=== PATIENT | male | born 1925 | race Caucasian/White ===

== ENCOUNTER 2016-12-05 15:07 | Inpatient (IN) | payer MEDICARE ==
--- OUTSIDE RECORDS SUMMARY | 2016-12-05 15:10 | XMS | Clinical Summary ---
:1925 Author Organization [facility] Address [address] [place] [address] Phone Care Team Providers Name Role Phone , Primary Care Provider Unavailable Allergies Not on File Current Medications Not on file Active Problems Not on file Social History Tobacco Use Types Packs/Day Years Used Date Never Assessed Sex Assigned at Date Recorded Not on file Last Filed Vital Signs Not on file Plan of Treatment Not on file Results Not on filefrom Last 3 Months
[2016-12-05 15:50] LABS: #Eosinphils 0.1 thou/uL (0.0-0.7); #Lymphocytes 0.8 thou/uL (1.20-3.40); #Monocytes 0.7 thou/uL (0.11-0.59); #Neutrophils 3.9 thou/uL (1.40-6.50); %Basophils 0.4 % (0.0-1.0); %Eosinophils 1.9 % (0.0-10.0); %Lymphocytes 14.9 % (21.0-51.0); %Monocytes 13.3 % (0.0-10.0); Hematocrit 34.8 % (42.0-52.0); Mean Platelet Volume 6.5 fL (7.4-10.4); Red Blood Cell (RBC) Count 3.57 mill/uL (4.70-6.10); White Blood Cell (WBC) Count 5.5 thou/uL (4.8-10.8)
[2016-12-05 16:07] LABS: Lactic Acid - Sepsis 1.8 mmol/L (0.5-2.2)
[2016-12-05 16:09] LABS: ALT (SGPT) 7 U/L (8-55); AST (SGOT) 14 U/L (5-34); Alkaline Phosphatase 60 U/L (40-150); Anion Gap 12 mmol/L (10-20); BUN (Urea Nitrogen) 11 mg/dL (8.4-25.7); Bilirubin, Total 0.5 mg/dL (0.2-1.2); CK (CPK) 23 U/L (30-200); Calc. Creatinine Clearance 0 mL/min (70-130); Carbon Dioxide 28 mmol/L (23-31); Chloride 95 mmol/L (98-107); Estimated GFR-MDRD Greater than 90; Globulin 3.8 g/dL (2.4-3.5)
[2016-12-05 16:13] LABS: Troponin I 0.042 ng/mL (< 0.028)
[2016-12-05 16:35] LABS: Bilirubin Negative (Negative); Blood, Urine Moderate (Negative); Glucose, Urine (Dipstick) Negative (Negative); Ketone, Urine Negative (Negative); Nitrite Negative (Negative); Protein, Urine (Dipstick) 100 mg/dL (Neg-Trace)
[2016-12-05 16:37] LABS: Bacteria/HPF Rare-Few HPF (None Seen); RBC/HPF 21-50 HPF (0-3); Squamous Epithelial 0-3 HPF (0-3)
[2016-12-05] MEDS ORDERED: traMADol HCl 50 MG TAB ONE (16:40)
[2016-12-05 16:48] LABS: Hyaline Casts/LPF 0-3 HYALINE CAST LPF (0-3 Hyaline); Yeast-All Forms None Seen HPF (None Seen)
[2016-12-05] MEDS ORDERED: ISOVUE-370 76%-LOCM 1 ML ONE (16:52)
[2016-12-05] MEDS ORDERED: Piperacillin/Tazobactam 3.375 GM in Sodium Chloride 0.9% 100 ML IVPB SCH (18:45)
--- NOTE | 2016-12-05 19:03 | CT ---
EXAM: ABDOMEN CT WITH CONTRAST PELVIC CT WITH CONTRAST 12/05/16 HISTORY: Stage IV sacral decubitus right buttock ulcer. COMPARISON: None. TECHNIQUE: An abdomen and pelvic CT are performed with IV contrast. Coronal reformatted images are submitted ar e submitted for interpretation. FINDINGS: ABDOMEN CT: The heart is enlarged. There is no significant pericardial fluid. Small bilateral pleural effusions. Adjacent consolidation likely due to atelectasis or pneumonia is noted. Descending thoracic aorta a nd abdominal aorta have an overall normal caliber. There is atherosclerosis. No periaortic fat stran ding. Note is made of an IVC filter. Intra and extrahepatic portal vein is patent. Limited evaluation of the solid organs due to inadequate contrast enhancement and motion degradation . No obvious masses in the liver, spleen, or either adrenal gland. There is mild pancreatic atrophy. There are hypodensities in the right kidney compatible with complex right renal cysts. Largest hypod ensity measures 4.6 x 3.8 cm and has an attenuation coefficient of 24 Hounsfield units. This lesion can be better characterized with nonemergent renal ultrasound. Bilaterally, no obstructive uropathy. Ventral abdominal hernia containing mesenteric fat is noted. No bowel herniation. No mesenteric mass, lymphadenopathy, free air or free fluid. Limited evaluation of the alimentary canal due to motion and lack of oral contrast. No bowel obstruc tion. Ileocecal junction is normal. Normal caliber appendix. Scattered fecal material in a nondisten ded, nondilated colon. Diverticulosis of the sigmoid colon. No evidence of diverticulitis. Note: Evaluation of the sigmoid colon is limited by beam attenuation artifact due to bilateral hip p rostheses. PELVIC CT: There is some nonspecific fluid in the distal sigmoid colon and rectum, incompletely evaluated. No o bvious pelvic mass, lymphadenopathy, free air or free fluid. The urinary bladder is not appreciated. Evaluation of the pelvis is limited due to extensive beam attenuation artifact secondary to bilater al hip arthroplasties as well as internal fixation hardware involving the left acetabulum. Chronic c hanges to the left bony pelvis and left hip are noted. There appears to be induration of the fat wit h stranding involving the medial right gluteal subcutaneous fat and soft tissues. A drainable fluid collection is not appreciated. The hypodensity does expand into the deep subcutaneous fat. This hypo density is somewhat ill-defined, measuring 3.8 x 3.0 cm. Questionable induration of the left gluteal subcutaneous fat is also noted. There are no osteoblastic or osteolytic lesions. IMPRESSION: 1. Bilateral pleural effusion with adjacent lung consolidation due to atelectasis or pneumonia. 2. Limited evaluation of the solid organs. Grossly, no solid organ abnormality. 3. Hypodensities in the right kidney. Nonemergent right kidney ultrasound. 4. Right gluteal subcutaneous erosion and stranding of the deep and subcutaneous fat. A well de fined drainable abscess is not appreciated. 5. Diverticulosis of the sigmoid colon, without evidence of diverticulitis. Nonspecific fluid i n the distal sigmoid colon and rectum. POS: [facility]
[2016-12-05] MEDS ORDERED: Ondansetron ODT 4 MG TAB SL PRN (20:00)
[2016-12-05] MEDS ORDERED: Acetaminophen 325 MG TAB PO PRN (20:00)
[2016-12-05] MEDS ORDERED: Ondansetron HCl/PF 4 MG/2 ML Vial IVP PRN ×2 (20:00→21:24)
--- NOTE | 2016-12-05 21:24 | PDOC.EVN ---
Event Note - Event Note Event Note: [id number] h&p dICTATED 1. Stage4 decubitus ulcer 2. H/O CHF + Abnormal cardiac enzymes 3. dm TYPE 2 4. HPL plan: see orders
[2016-12-05] MEDS ORDERED: HumaLOG 300 UNITS/3 ML VIAL SC PRN ×2 (21:26)
[2016-12-05] MEDS ORDERED: Dextrose 5% in Water 1,000 ML IV PRN (21:26)
[2016-12-05] MEDS ORDERED: Dextrose 50% Abboject 50 ML SYRINGE SLOW IVP PRN (21:26)
[2016-12-05] MEDS ORDERED: traMADol HCl 50 MG TAB PO PRN (21:27)
[2016-12-05] MEDS ORDERED: Terazosin HCl 1 MG CAP PO SCH (23:15)
[2016-12-05] MEDS ORDERED: Famotidine 20 MG TAB PO SCH (23:15)
[2016-12-05] MEDS ORDERED: Atorvastatin Calcium 10 MG TAB PO SCH (23:15)
[2016-12-06] MEDS: Vancomycin HCl 1.5 GM in Sodium Chloride 0.9% 250 ML 300 ML IVPB SCH ×3 (01:24→23:40)
[2016-12-06] MEDS: Piperacillin/Tazobactam 3.375 GM in Sodium Chloride 0.9% 100 ML IVPB SCH ×4 (05:04→21:05)
[2016-12-06 06:13] LABS: Anion Gap 11 mmol/L (10-20); BUN (Urea Nitrogen) 9 mg/dL (8.4-25.7); Calc. Creatinine Clearance 135 mL/min (70-130); Calcium 8.6 mg/dL (7.8-10.44); Carbon Dioxide 25 mmol/L (23-31); Chloride 98 mmol/L (98-107); Estimated GFR-MDRD Greater than 90
[2016-12-06 06:15] LABS: Band 1 % (5-11); Hematocrit 31.7 % (42.0-52.0); Mean Platelet Volume 6.5 fL (7.4-10.4); Neutrophil 65 % (42-75); Red Blood Cell (RBC) Count 3.27 mill/uL (4.70-6.10); White Blood Cell (WBC) Count 4.8 thou/uL (4.8-10.8)
--- NOTE | 2016-12-06 07:04 | HP ---
CHIEF COMPLAINT: Decubitus ulcer. HISTORY OF PRESENT ILLNESS: The patient is an 89-year-old male with past medical history of diabetes mellitus type 2, chronic decubitus ulcer, congestive heart failure, hypertension, atrial fibrillation, now brought to the hospital because of chronic right hip wound. The patient has chronic right hip wound for which [facility] the [facility] several months. According to the family, the patient's wound is slowly getting worse. Patient was recently discharged from the hospital on 06/26/2016, to [facility] and was discharged from [facility] in the month of July. Per family , the patient was getting wound care, but the wound is not improving, so patient was brought to the ER for further evaluation. The patient denies any trouble breathing, denies chest pain at this time, but complains of a wound pain , pain in the sacral lesion, constant pain, moderate in intensity, increases with pain medication. Denies any fever, denies any chills, denies any nausea, vomiting. PAST MEDICAL HISTORY: As per HPI. PAST SURGICAL HISTORY: Bilateral hip replacement, pacemaker. SOCIAL HISTORY: Denies smoking, denies alcohol, denies any drugs. FAMILY HISTORY: Positive for heart problems. MEDICATIONS: Reviewed. REVIEW OF SYSTEMS: Constitutional: Denies any fever, denies any chills. Eyes : Vision problems. Ears: Denies any hearing loss. Neck: Denies any neck pain. Cardiovascular system: Denies any chest pain, denies any palpations. Respiratory: Denies any cough, denies sputum production. Musculoskeletal: Sacral lesion. Positive for decubitus ulcer. Integumentary: Positive for chronic decubitus ulcer. Psychiatric: Denies anxiety. All other review of systems are reviewed and are negative. PHYSICAL EXAMINATION: CONSTITUTIONAL/VITAL SIGNS: At the time of H and P performed, blood pressure is stable. Afebrile, respiration rate 18. The patient's pulse ox 97% on room air. GENERAL APPEARANCE: The patient appears tired. HEENT: Anterior nares patent. Nose normal. Ears normal. Teeth intact. Tongue is moist. NECK: Supple. No JVD. CARDIOVASCULAR: S1, S2 present. Regular rate and rhythm. No murmurs, no rubs , no gallops. RESPIRATORY SYSTEM: Diminished breath sounds present. Positive for crackles. No rhonchi, poor respiratory effort. GASTROINTESTINAL: Abdomen is soft, nontender, no guarding, no organomegaly, no masses felt. MUSCULOSKELETAL: No edema. CRANIAL NERVOUS SYSTEM: Awake, follows commands. Bilateral lower extremity, chronic weakness present. PSYCHIATRIC: Mood appropriate at this time. INTEGUMENTARY: Sacral lesion. Positive for stage IV decubitus ulcer, diffuse perianal erythema was seen. Appears candidiasis. LABORATORY DATA: At the time H and P performed, sodium 131, potassium 4, chloride 95, CO2 28, BUN of 11, creatinine 0.65. Troponin 0.042. Albumin 3.2, globulin 3.8. White count 5.5, hemoglobin 11.4, platelet count 206. CT abdomen and pelvis reviewed, positive for pleural effusion and possible consolidation also, right kidney complex cyst seen. No abscess seen. Positive for bilateral pleural effusion, adjacent lung consolidation seen. ASSESSMENT AND PLAN: The patient is an 89-year-old man: 1. Chronic stage IV decubitus ulcer. Plan to consult Wound Care and Infectious Disease to evaluate the patient. We will go ahead and start the patient with IV antibiotics. 2. Urinary tract infection plus possible pneumonia. Continue empiric IV antibiotics. We will wait for ID input. 3. History of hypertension. Continue home blood pressure medications. 4. Abnormal cardiac enzymes and history of congestive heart failure. Follow serial cardiac enzymes. We will monitor closely. 5. History of diabetes mellitus 2. Monitor blood sugars. We will do insulin sliding scale. The case was discussed in detail with the patient and patient's family member. YOSEPH
[2016-12-06] MEDS: Famotidine 20 MG TAB PO SCH ×2 (08:19→20:38)
[2016-12-06] MEDS: Nystatin Powder 15 GM BOT TOP SCH ×3 (08:20→20:42)
--- NOTE | 2016-12-06 10:37 | PDOC.PN ---
- Subjective Encounter Start Date: 12/06/16 Encounter Start Time: 10:36 Patient seen and examined, very hard of hearing, son and rental boats caretaker at bedside. They state that he is doing well for now, state that they would like to have the patient come home as the patient had stated he never wants to go to a snf and only wants to be at home. Patient seen and examined, family at bedside, all questions answered. - Objective Vital Signs & Weight: Vital Signs (12 hours) Temp Pulse Resp BP Pulse Ox 12/06/16 07:57 96.4 F L 98 20 131/61 98 12/06/16 04:00 97.3 F L 62 18 112/56 L 100 Weight Weight 240 lb I&O: 12/05/16 12/06/16 12/07/16 06:59 06:59 06:59 Intake Total 930 Output Total 800 Balance 130 Result Diagrams: 12/06/16 05:26 12/06/16 05:26 Additional Labs: Accuchecks 12/06/16 12/05/16 05:17 20:39 POC Glucose 92 106 Phys Exam - Physical Examination Constitutional: NAD HEENT: PERRLA, moist MMs hard of hearing Neck: no nodes, no JVD Respiratory: no wheezing, no rales coarse breath sounds Cardiovascular: RRR, no significant murmur Gastrointestinal: soft, non-tender rotund Musculoskeletal: pulses present, edema present (trace) Neurological: normal sensation not moving his lower extremities, SCDs Psychiatric: normal affect, A&O x 3 Skin: normal turgor, cap refill <2 seconds Deviation from normal: right buttock sacral ulcer with wound vac -: left buttock erythema and brusing Dx/Plan (1) Decubitus ulcer Code(s): L89.90 - PRESSURE ULCER OF UNSPECIFIED SITE, UNSPECIFIED STAGE Status : Acute (2) Sepsis Code(s): A41.9 - SEPSIS, UNSPECIFIED ORGANISM Status: Acute Qualifiers: Sepsis type: Escherichia coli Qualified Code(s): A41.51 - Sepsis due to Escherichia coli [E. coli] (3) UTI (urinary tract infection) Status: Acute Qualifiers: Urinary tract infection type: acute cystitis Hematuria presence: without hematuria Qualified Code(s): N30.00 - Acute cystitis without hematuria (4) Dyslipidemia Code(s): E78.5 - HYPERLIPIDEMIA, UNSPECIFIED Status: Chronic (5) HTN (hypertension) Code(s): I10 - ESSENTIAL (PRIMARY) HYPERTENSION Status: Chronic Qualifiers: Hypertension type: essential hypertension Qualified Code(s): I10 - Essential (primary) hypertension - Plan * Wound care management for decubitus ulcer * Blood cultures pending * Urine culture presumptive pseudomonas, C&S pending for now * cont abx * pain management * DC planning on home if blood cultures negative at 72hrs, patient's family have home health care and a wound care team that they go to, will likely need wound vac set up for home * case and plan d/w patient, son and spikemaking supervisor at length, they understand and agree with this plan
--- NOTE | 2016-12-06 19:53 | CON ---
DATE OF CONSULTATION: 12/06/2016 REASON FOR CONSULTATION: Decubitus ulcer. HISTORY OF PRESENT ILLNESS: An 89-year-old who has history of type 2 diabetes and cardiomyopathy with systolic CHF, AFIB and a chronic mobility impairment being bedbound for the past few months at home and a chronic right hip wound. The [facility] [place] for the past few weeks with worsening of the wound; therefore, he was readmitted for management. There had been no headaches, no sore throat, odynophagia, dysphagia , no vomiting. No respiratory symptoms or chest pain. No abdominal pain. No diarrhea. He did have pain around the right hip wound area. PAST MEDICAL HISTORY: Includes type 2 diabetes, cardiomyopathy with pacemaker, atrial fibrillation, bilateral hip replacements, and pacemaker placement. 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 He became mobility impaired a few years ago and had to retire, initially mostly on the wheelchair and more recently bedbound. FAMILY HISTORY: Cardiomyopathy. CURRENT MEDICATIONS: Include [place], aspirin, Lipitor, Pradaxa, Cardizem, Pepcid , glucagon, insulin, Mycostatin, Zosyn, and vancomycin. PHYSICAL EXAMINATION: VITAL SIGNS: Reveals T-max 98, blood pressure 114/61, pulse 70, respirations 16 , O2 sat 98%. SKIN: Demonstrates the right ischial area of ulceration measuring about 5 cm irregular, oval shaped with lot of undermining in the anterior edge of the ulcer as well as maceration around this area with erythema. No lymphadenopathy. Peripheral IV access. No Hugo catheter. HEENT: Ocular movements are conjugate. Oral cavity with still quite a few teeth remaining. Oral mucosa normal. NECK: Supple. LUNGS: Symmetric. Clear breath sounds. Pacer pocket site normal. HEART: S1, S2. Irregular rate. No obvious murmurs. ABDOMEN: Soft. Not distended. No tenderness. No ascites or organomegaly. No bladder distention. 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 Pulses are 1+ in dorsalis pedis. He has marked limitation of movement in lower extremities and he can wiggle his right toes, but not the left side. He faintly moves the left foot. Pulses are 1+ in dorsalis pedis. There is finding consistent with stasis dermatitis in legs. NEUROLOGIC: He is awake, marked hearing impairment, but his cognitive function appears to be intact with good memory. LABORATORY DATA AND IMAGING: Sodium 130, creatinine 0.57. Liver profile normal. CK 23, CRP 4.02, albumin 3.2. Urinalysis with greater than 50 wbc's. White cell count 5.5 and 4.8, hemoglobin 11.4, MCV 97, platelets 206 with 69% neutrophils. Two sets of blood cultures, no growth. Urine culture with presumptive Pseudomonas. Imaging studies include an abdomen and pelvis CT with cardiomegaly, bilateral pleural effusions, hypodensity of right kidney, gluteal subcutaneous erosions, stranding of the deep and subcutaneous fat, but no abscess noted. This is a contrast study. No evidence of osteolysis at this point in time. ASSESSMENT: 1. Chronic mobility impairment with bedbound state. 2. Right ischial decubitus ulcer without evidence of osteolytic lesions. 3. Cardiomyopathy with pacemaker. 4. Maceration and Patricia infection of the skin of the dependent areas. DISCUSSION: Patient does not have any obvious radiological evidence of bone involvement at this point in time and we will discuss with Wound Care regarding any evidence of exposure of bone, both our service as well as Dr. Teresa in [place]. We will order a bone scan triple phase tagged study to see if there are any areas of uptake in the right ischial area and then make a decision as to the need for protracted antimicrobial therapy or not. The patient has declined admission to a supervised setting for wound management and offloading as well as maceration of the wound seems to be part of the problem here. We will discuss with Dr. Teresa in [place] regarding the progress of the wound over the past few months since she has had the most contact with the patient. YOSEPH
[2016-12-06] MEDS: Terazosin HCl 1 MG CAP PO SCH (20:39)
[2016-12-06] MEDS: Atorvastatin Calcium 10 MG TAB PO SCH (20:40)
[2016-12-06] MEDS: HYDROcodone/Acetaminophen 5/325 mg Tablet PO PRN (20:47)
[2016-12-06] MEDS ORDERED: Simvastatin 20 MG TAB PO SCH (21:00)
[2016-12-07] MEDS: Piperacillin/Tazobactam 3.375 GM in Sodium Chloride 0.9% 100 ML IVPB SCH ×4 (04:39→21:29)
[2016-12-07] MEDS: Sodium Chloride 0.9% 10 ML ONE (04:40)
[2016-12-07] MEDS: Fluconazole 100 MG TAB PO SCH (10:19)
[2016-12-07] MEDS: HYDROcodone/Acetaminophen 5/325 mg Tablet PO PRN ×2 (10:19→23:11)
[2016-12-07] MEDS: Famotidine 20 MG TAB PO SCH ×2 (10:19→20:31)
[2016-12-07] MEDS: Nystatin Powder 15 GM BOT TOP SCH ×3 (10:39→21:04)
[2016-12-07 12:07] LABS: Vancomycin, Trough 16.3 ug/mL
--- NOTE | 2016-12-07 13:09 | PDOC.PN ---
- Subjective Encounter Start Date: 12/07/16 Encounter Start Time: 13:07 pt hard of hearing doing well, ate bf, no n/v no f/c answered all questions - Objective MAR Reviewed: Yes Vital Signs & Weight: Vital Signs (12 hours) Temp Pulse Resp BP Pulse Ox 12/07/16 08:00 97.3 F L 75 18 133/65 95 12/07/16 04:03 97 12/07/16 04:00 97.5 F L 71 18 126/65 99 Weight Weight 137 lb I&O: 12/06/16 12/07/16 12/08/16 06:59 06:59 06:59 Intake Total 930 1430 690 Output Total 800 830 Balance 130 600 690 Result Diagrams: 12/06/16 05:26 12/06/16 05:26 Additional Labs: Accuchecks 12/07/16 12/07/16 12/06/16 11:35 06:27 20:48 POC Glucose 105 102 144 H 12/06/16 17:05 POC Glucose 123 H Phys Exam - Physical Examination Constitutional: NAD HEENT: PERRLA Neck: no JVD Respiratory: no wheezing Cardiovascular: no significant murmur Gastrointestinal: soft, non-tender Musculoskeletal: pulses present Neurological: normal sensation, moves all 4 limbs Deviation from normal: rt decubitus ulcer with wound vac in place Dx/Plan (1) Decubitus ulcer Code(s): L89.90 - PRESSURE ULCER OF UNSPECIFIED SITE, UNSPECIFIED STAGE Status : Acute (2) UTI (urinary tract infection) Status: Acute Comment: possible catheter associated pt has been having figueroa in for last few months possibly from june (3) CAD (coronary artery disease) Code(s): I25.10 - ATHSCL HEART DISEASE OF [place] CORONARY ARTERY W/O ANG PCTRS Status: Chronic Qualifiers: Coronary Disease-Associated Artery/Lesion type: bypass graft [place] vs. transplanted heart: [place] heart Associated angina: without angina Qualified Code(s): I25.810 - Atherosclerosis of coronary artery bypass graft(s) without angina pectoris (4) Dyslipidemia Code(s): E78.5 - HYPERLIPIDEMIA, UNSPECIFIED Status: Chronic (5) HTN (hypertension) Code(s): I10 - ESSENTIAL (PRIMARY) HYPERTENSION Status: Chronic Qualifiers: Hypertension type: essential hypertension Qualified Code(s): I10 - Essential (primary) hypertension (6) Pacemaker Code(s): Z95.0 - PRESENCE OF CARDIAC PACEMAKER Status: Chronic - Plan * * Wound care management for decubitus ulcer * Blood cultures pending * Urine culture presumptive pseudomonas, f/u dr hayes plan. sensitive only to tobramycin * cont abx * pain management * DC planning on home if blood cultures negative at 72hrs, patient's family have home health care and a wound care team that they go to, will likely need wound vac set up for home * case and plan d/w patient, son and case planner at length, they understand and agree with this plan
[2016-12-07] MEDS: Vancomycin HCl 1.5 GM in Sodium Chloride 0.9% 250 ML 300 ML IVPB SCH ×2 (13:12→23:04)
[2016-12-07] MEDS: Atorvastatin Calcium 10 MG TAB PO SCH (20:31)
[2016-12-07] MEDS: Terazosin HCl 1 MG CAP PO SCH (21:03)
[2016-12-07] MEDS ORDERED: Sodium Chloride 0.9% 10 ML ONE ×2 (21:30→22:01)
[2016-12-08] MEDS ORDERED: Sodium Chloride 0.9% 10 ML ONE ×3 (03:16→22:44)
[2016-12-08] MEDS: Piperacillin/Tazobactam 3.375 GM in Sodium Chloride 0.9% 100 ML IVPB SCH ×4 (03:19→21:51)
[2016-12-08] MEDS: Famotidine 20 MG TAB PO SCH ×2 (09:13→21:43)
[2016-12-08] MEDS: Fluconazole 100 MG TAB PO SCH (09:14)
[2016-12-08] MEDS: Nystatin Powder 15 GM BOT TOP SCH ×3 (09:14→21:51)
--- NOTE | 2016-12-08 12:07 | PDOC.PN ---
- Subjective Encounter Start Date: 12/08/16 Encounter Start Time: 12:05 Patient seen and examined. No new complaints. No overnight events - Objective MAR Reviewed: Yes Vital Signs & Weight: Vital Signs (12 hours) Temp Pulse Resp BP Pulse Ox 12/08/16 08:00 97.9 F 71 20 98 12/08/16 07:52 97.9 F 71 20 133/62 98 12/08/16 04:01 95 Weight Admit Weight 239 lb Weight 244 lb 8 oz I&O: 12/07/16 12/08/16 12/09/16 06:59 06:59 06:59 Intake Total 1430 2100 Output Total 830 1270 Balance 600 830 Result Diagrams: 12/06/16 05:26 12/06/16 05:26 Additional Labs: Accuchecks 12/08/16 12/07/16 12/07/16 05:43 20:30 17:18 POC Glucose 98 113 H 96 12/07/16 11:35 POC Glucose 105 Phys Exam - Physical Examination Constitutional: NAD HEENT: PERRLA Neck: no JVD Respiratory: no wheezing Cardiovascular: RRR Gastrointestinal: soft Musculoskeletal: pulses present Neurological: normal sensation, moves all 4 limbs Deviation from normal: decubitus ulcer with wound vac Dx/Plan (1) Decubitus ulcer Code(s): L89.90 - PRESSURE ULCER OF UNSPECIFIED SITE, UNSPECIFIED STAGE Status : Acute (2) UTI (urinary tract infection) Status: Acute Comment: possible catheter associated pt has been having figueroa in for last few months possibly from june (3) CAD (coronary artery disease) Code(s): I25.10 - ATHSCL HEART DISEASE OF [place] CORONARY ARTERY W/O ANG PCTRS Status: Chronic Qualifiers: Coronary Disease-Associated Artery/Lesion type: bypass graft [place] vs. transplanted heart: [place] heart Associated angina: without angina Qualified Code(s): I25.810 - Atherosclerosis of coronary artery bypass graft(s) without angina pectoris (4) Dyslipidemia Code(s): E78.5 - HYPERLIPIDEMIA, UNSPECIFIED Status: Chronic (5) HTN (hypertension) Code(s): I10 - ESSENTIAL (PRIMARY) HYPERTENSION Status: Chronic Qualifiers: Hypertension type: essential hypertension Qualified Code(s): I10 - Essential (primary) hypertension (6) Pacemaker Code(s): Z95.0 - PRESENCE OF CARDIAC PACEMAKER Status: Chronic - Plan * nm bone scan pending * f/u dr hayes plan * pt/ot eval * case mx to help with placement at [facility]
[2016-12-08] MEDS: Vancomycin HCl 1.5 GM in Sodium Chloride 0.9% 250 ML 300 ML IVPB SCH ×2 (12:53→23:01)
[2016-12-08 13:40] LABS: Anion Gap 10 mmol/L (10-20); BUN (Urea Nitrogen) 7 mg/dL (8.4-25.7); Calc. Creatinine Clearance 117 mL/min (70-130); Calcium 8.4 mg/dL (7.8-10.44); Carbon Dioxide 26 mmol/L (23-31); Chloride 101 mmol/L (98-107); Estimated GFR-MDRD Greater than 90
--- NOTE | 2016-12-08 16:23 | NM ---
TECHNIETIUM 99M LABELED CERETEC TAGGED WHITE BLOOD CELLS: COMPARISON: CT of the abd and pelvis dated 11/18/16. RADIOPHARMACEUTICAL: 4.3 mCi of Technetium 99m HMPAO tagged white blood cells. FINDINGS: There is abnormal uptake seen involving the left acetabulum, left ischial tuberosity and left proxim al femur suspicious for changes of osteomyelitis and the left acetabulum, ischial tuberosity and lef t proximal femur surrounding the left hip prosthesis. There is extensive sclerosis and bony expansi on of the left acetabulum and left ischial tuberosity near a sacral decubitus ulcer on the patient's prior CT evaluation dated 12/05/16. 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 POS: [facility]
[2016-12-08] MEDS: Atorvastatin Calcium 10 MG TAB PO SCH (21:42)
[2016-12-08] MEDS: Terazosin HCl 1 MG CAP PO SCH (21:50)
[2016-12-08] MEDS: HYDROcodone/Acetaminophen 5/325 mg Tablet PO PRN (22:02)
[2016-12-09] MEDS ORDERED: Sodium Chloride 0.9% 10 ML ONE (03:41)
[2016-12-09] MEDS: Piperacillin/Tazobactam 3.375 GM in Sodium Chloride 0.9% 100 ML IVPB SCH ×4 (04:46→21:40)
[2016-12-09 05:14] LABS: #Eosinphils 0.2 thou/uL (0.0-0.7); #Lymphocytes 0.8 thou/uL (1.20-3.40); #Monocytes 0.7 thou/uL (0.11-0.59); #Neutrophils 3.2 thou/uL (1.40-6.50); %Basophils 0.2 % (0.0-1.0); %Eosinophils 3.6 % (0.0-10.0); %Lymphocytes 16.3 % (21.0-51.0); Hematocrit 31.3 % (42.0-52.0); Mean Platelet Volume 6.5 fL (7.4-10.4); Red Blood Cell (RBC) Count 3.18 mill/uL (4.70-6.10); White Blood Cell (WBC) Count 4.9 thou/uL (4.8-10.8)
[2016-12-09] MEDS: Famotidine 20 MG TAB PO SCH (08:38)
[2016-12-09] MEDS: Fluconazole 100 MG TAB PO SCH (08:38)
[2016-12-09] MEDS: Nystatin Powder 15 GM BOT TOP SCH ×3 (08:40→21:41)
[2016-12-09] MEDS: Vancomycin HCl 1.5 GM in Sodium Chloride 0.9% 250 ML 300 ML IVPB SCH (12:47)
--- NOTE | 2016-12-09 13:15 | PDOC.PN ---
- Subjective Encounter Start Date: 12/09/16 Encounter Start Time: 13:13 Patient seen and examined. No new complaints. No overnight events - Objective MAR Reviewed: Yes Vital Signs & Weight: Vital Signs (12 hours) Temp Pulse Resp BP Pulse Ox 12/09/16 12:53 96.8 F L 71 20 139/71 94 L 12/09/16 08:00 97.6 F 70 20 94 L 12/09/16 07:59 97.6 F 70 20 145/78 H 94 L 12/09/16 04:00 98.2 F 74 20 126/62 97 Weight Admit Weight 239 lb Weight 243 lb 4.8 oz I&O: 12/08/16 12/09/16 12/10/16 06:59 06:59 06:59 Intake Total 2100 1875 Output Total 1270 1550 Balance 830 325 Result Diagrams: 12/09/16 04:33 12/08/16 13:09 Additional Labs: Accuchecks 12/09/16 12/08/16 12/08/16 05:52 20:07 16:51 POC Glucose 106 125 H 98 Phys Exam - Physical Examination Constitutional: NAD HEENT: PERRLA Neck: no JVD Respiratory: no wheezing Cardiovascular: no significant murmur Gastrointestinal: non-tender Musculoskeletal: pulses present Neurological: moves all 4 limbs Psychiatric: A&O x 3 Deviation from normal: decubitus ulcer noted in sacral area Dx/Plan (1) Decubitus ulcer Code(s): L89.90 - PRESSURE ULCER OF UNSPECIFIED SITE, UNSPECIFIED STAGE Status : Acute (2) UTI (urinary tract infection) Status: Acute Comment: possible catheter associated pt has been having figueroa in for last few months possibly from june (3) CAD (coronary artery disease) Code(s): I25.10 - ATHSCL HEART DISEASE OF [place] CORONARY ARTERY W/O ANG PCTRS Status: Chronic Qualifiers: Coronary Disease-Associated Artery/Lesion type: bypass graft [place] vs. transplanted heart: [place] heart Associated angina: without angina Qualified Code(s): I25.810 - Atherosclerosis of coronary artery bypass graft(s) without angina pectoris (4) Dyslipidemia Code(s): E78.5 - HYPERLIPIDEMIA, UNSPECIFIED Status: Chronic (5) HTN (hypertension) Code(s): I10 - ESSENTIAL (PRIMARY) HYPERTENSION Status: Chronic Qualifiers: Hypertension type: essential hypertension Qualified Code(s): I10 - Essential (primary) hypertension (6) Pacemaker Code(s): Z95.0 - PRESENCE OF CARDIAC PACEMAKER Status: Chronic (7) Osteomyelitis hip Code(s): M86.9 - OSTEOMYELITIS, UNSPECIFIED Status: Acute - Plan * f/u dr hayes plan * cont wound care * placement
[2016-12-09] MEDS: Terazosin HCl 1 MG CAP PO SCH (21:34)
[2016-12-09] MEDS: Atorvastatin Calcium 10 MG TAB PO SCH (21:34)
[2016-12-09 23:52] LABS: Vancomycin, Trough 20.9 ug/mL
[2016-12-10] MEDS: Vancomycin HCl 1.5 GM in Sodium Chloride 0.9% 250 ML 300 ML IVPB SCH ×2 (00:03→15:12)
[2016-12-10] MEDS: HYDROcodone/Acetaminophen 5/325 mg Tablet PO PRN (01:30)
[2016-12-10] MEDS ORDERED: Sodium Chloride 0.9% 0 ML ONE (03:41)
[2016-12-10] MEDS ORDERED: Sodium Chloride 0.9% 10 ML ONE (03:42)
[2016-12-10] MEDS: Piperacillin/Tazobactam 3.375 GM in Sodium Chloride 0.9% 100 ML IVPB SCH ×4 (03:48→22:57)
--- NOTE | 2016-12-10 06:13 | CON ---
DATE OF CONSULTATION: 12/09/2016 REASON FOR CONSULTATION: Possible blood in the stool. HISTORY OF PRESENT ILLNESS: Mr. Lama is an 89-year-old who is very hard of hearing, and is not very active. He was admitted to the hospital on 12/05/2016 secondary to chronic right hip wound. Leslie de leon has been followed in wound care for several months, apparently it was worsening, and he was admitt ed to the hospital for this. He has got type 2 diabetes, chronic decubitus ulcer, congestive heart failure, hypertension, atrial fibrillation, chronic normocytic anemia. He was seen by Dr. Hernandez in consultation on 12/06/2016, and not felt to have any overt findings of bone involvement. 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 Apparently today, there was some concern about rectal bleeding, brigh t red and melenic, according to the night nurse, she was noted no bleeding. Reviewing the [facility] notes, there is no mention of this, which apparently what has been consulted for. Mr. Lama i s not able to add any history but topographical surveyor at the bedside notes she has noted no bleeding; she know s him from home. She said he is very hard of hearing and he is unable to relayed a history or compl y with the review of systems. The patient was seen in the hospital in November of last year at [facility] time he had a lower GI bleeding and have an endoscopy suggestive of ischemic colitis in the sigmo id colon. He responded to conservative therapy. PAST MEDICAL HISTORY: Type 2 diabetes, cardiomyopathy with pacemaker, atrial fibrillation, bilatera l hip replacements. 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 He has been bed bound recently. PRESENT MEDICATIONS: [place], aspirin, Lipitor, Pradaxa, Cardizem, Pepcid, glucagon, insulin, Mycosta tin, Zosyn and vancomycin. He is also on Ultram, Protonix now, hydrocodone, insulin sliding scale, a torvastatin, aspirin daily. Occult blood stools have been ordered, but not obtained. PHYSICAL EXAMINATION: VITAL SIGNS: Temperature is 96, pulse 70, blood pressure 150/71. GENERAL: Patient is resting in bed. He is hard of hearing, really difficult to communicate with denis mayberry. He cannot really answer any questions in terms of bleeding symptoms. He denies abdominal pain, however. LUNGS: Clear. HEART: Regular rate and rhythm. ABDOMEN: Soft and nontender. He is a large man. RECTAL: Reveals no blood per the perirectal tissues. Digital exam shows brown stool in the vault. He has a skin patch over the right ischial tuberosity. LABORATORY STUDIES: Baseline hemoglobin was around 10 and has been for most of this year, hemoglobi n on admission was 11.4-10.1 today. MCV is 98, platelets are 184 and white count is 4.9. Sodium 13 3, potassium 4, chloride 101, bicarbonate 26, BUN and creatinine are 7 and 0.67. On admission, ALT, AST and liver function tests were normal. ASSESSMENT: No signs of gastrointestinal bleeding at this time. CAT scan of abdomen and pelvis wit hout contrast on admission showed no overt abnormalities other than some fluid in the rectal vault. On rectal examination, appears to be stool there. Review of the study shows some moderate amount o f stool throughout the bowel, but no overt obstipation. RECOMMENDATIONS: Ulcer prophylaxis, bowel regimen if he is on narcotics, bed rest if it does not be come impacted at this time and no need for endoscopy. We will follow from a distance. Please call if I can be any further assistance.
[2016-12-10] MEDS: Fluconazole 100 MG TAB PO SCH (09:32)
[2016-12-10] MEDS: Nystatin Powder 15 GM BOT TOP SCH ×3 (09:40→21:24)
[2016-12-10 11:55] VITALS: BMI 33.3
--- NOTE | 2016-12-10 12:15 | PRG ---
DATE OF SERVICE: 12/10/2016 HISTORY: Mr. Lama is about the same in terms of his subjective status. OBJECTIVE: SKIN: Skin areas with still areas of maceration. LUNGS: With symmetric clear breath sounds. HEART: Irregular heart rate, awake. NEUROLOGIC: Marked hearing impairment. LABORATORY DATA: White cell count 4.9, hemoglobin 10, platelets 184, 65% neutrophils. Sodium 133, creatinine 0.67. Microbiology with pseudomonas aeruginosa, highly resistant phenotype and the prior cultures with proteus mirabilis, pseudomonas aeruginosa yeast and Enterococcus. Pseudomonas aerugi nosa yet again a quite resistant phenotype. Also, MRSA had been identified in the previous cultures . The pseudomonas aeruginosa has been isolated from different samples from that site and unfortunat betito this is highly resistant except for aminoglycosides, which I hesitate to use because of his jaime l possible impairment and renal function. ASSESSMENT AND DISCUSSION: Chronic mobility impairment with bed bound state, right ischial decubitu s ulcer and maceration of Patricia infection of skin in dependent areas. In view of the findings, we will advise treating patient with vancomycin and cefepime for 4 to 6 weeks, weekly labs.
[2016-12-10 12:49] LABS: Prothrombin Time 17.6 SEC (12.0-14.7)
[2016-12-10 12:50] LABS: PTT 53.7 SEC (22.9-36.1)
--- NOTE | 2016-12-10 13:11 | PDOC.PN ---
- Subjective Encounter Start Date: 12/10/16 Encounter Start Time: 13:09 Patient seen and examined. No new complaints. No overnight events - Objective MAR Reviewed: Yes Vital Signs & Weight: Vital Signs (12 hours) Temp Pulse Pulse Pulse Resp BP BP 12/10/16 09:00 65 70 121/60 128/62 12/10/16 08:10 97.9 F 69 20 12/10/16 04:00 97.9 F 74 20 BP Pulse Ox Pulse Ox Pulse Ox 12/10/16 09:00 97 97 12/10/16 08:10 135/65 92 L 12/10/16 04:00 131/60 93 L Weight Admit Weight 239 lb Weight 267 lb I&O: 12/09/16 12/10/16 12/11/16 06:59 06:59 06:59 Intake Total 1875 1745 Output Total 1550 1450 Balance 325 295 Result Diagrams: 12/09/16 04:33 12/08/16 13:09 Additional Labs: Accuchecks 12/10/16 12/10/16 12/09/16 10:32 05:54 20:26 POC Glucose 125 H 97 101 12/09/16 12/09/16 17:24 11:21 POC Glucose 115 H 142 H Phys Exam - Physical Examination Constitutional: NAD HEENT: moist MMs Neck: no JVD Respiratory: no wheezing Cardiovascular: no significant murmur Gastrointestinal: no distention Musculoskeletal: pulses present Neurological: moves all 4 limbs Psychiatric: A&O x 3 Deviation from normal: sacral decubitus ulcer Dx/Plan (1) Decubitus ulcer Code(s): L89.90 - PRESSURE ULCER OF UNSPECIFIED SITE, UNSPECIFIED STAGE Status : Acute (2) UTI (urinary tract infection) Status: Acute Comment: possible catheter associated pt has been having figueroa in for last few months possibly from june (3) CAD (coronary artery disease) Code(s): I25.10 - ATHSCL HEART DISEASE OF [place] CORONARY ARTERY W/O ANG PCTRS Status: Chronic Qualifiers: Coronary Disease-Associated Artery/Lesion type: bypass graft [place] vs. transplanted heart: [place] heart Associated angina: without angina Qualified Code(s): I25.810 - Atherosclerosis of coronary artery bypass graft(s) without angina pectoris (4) Dyslipidemia Code(s): E78.5 - HYPERLIPIDEMIA, UNSPECIFIED Status: Chronic (5) HTN (hypertension) Code(s): I10 - ESSENTIAL (PRIMARY) HYPERTENSION Status: Chronic Qualifiers: Hypertension type: essential hypertension Qualified Code(s): I10 - Essential (primary) hypertension (6) Pacemaker Code(s): Z95.0 - PRESENCE OF CARDIAC PACEMAKER Status: Chronic (7) Osteomyelitis hip Code(s): M86.9 - OSTEOMYELITIS, UNSPECIFIED Status: Acute (8) GI (gastrointestinal bleed) Code(s): K92.2 - GASTROINTESTINAL HEMORRHAGE, UNSPECIFIED Status: Acute Comment: gi input appreciated conservative rx for now etiology possible isch colitis - Plan * picc line today * dr hayes input appreciated * transfer to [facility] in am
--- NOTE | 2016-12-10 17:40 | SPC ---
EXAM: ULTRASOUND GUIDED PICC LINE 12/10/16 HISTORY: Infection. Patient needs Vancomycin. COMPARISON: None. EXPOSURE: 1.5 minutes. 5080 mGy*cm2. FINDINGS: Technically successful right upper extremity PICC LINE PLACEMENT. Distal tip is in the superior vena cava. Single lumen catheter is 39 cm. Catheter does flush and aspirate without difficulty. TECHNIQUE: Consent obtained to perform a right PICC line under ultrasound guidance. Right arm was prepped and d raped in the sterile fashion. 1% lidocaine, buffered with sodium bicarbonate used for local anesthes ia. Under ultrasound guidance, micropuncture needle was used to cannulate the brachial vein. A 0.018 guide wire was advanced through the needle to the level of the superior vena cava. Tract was dilate d. Single lumen 5 [place] catheter was advanced over the wire. Wire was removed. Catheter does flush and aspirate without difficulty. IMPRESSION: Technically successful right upper extremity PICC line placement with ultrasound guidance. POS: [facility]
[2016-12-10] MEDS ORDERED: Milk Of Magnesia 30 ML UDCUP PO SCH (19:15)
[2016-12-10] MEDS: Sodium Hypochlorite 0.25% Solution 480 ML BOT TOP SCH (21:23)
[2016-12-10] MEDS: Atorvastatin Calcium 10 MG TAB PO SCH (21:24)
[2016-12-10] MEDS: Terazosin HCl 1 MG CAP PO SCH (21:25)
[2016-12-11] MEDS: Vancomycin HCl 1.5 GM in Sodium Chloride 0.9% 250 ML 300 ML IVPB SCH (02:38)
[2016-12-11] MEDS: Sodium Chloride 0.9% 10 ML ONE (02:39)
[2016-12-11] MEDS: Piperacillin/Tazobactam 3.375 GM in Sodium Chloride 0.9% 100 ML IVPB SCH ×2 (04:43→11:25)
[2016-12-11] MEDS: Fluconazole 100 MG TAB PO SCH (09:22)
[2016-12-11] MEDS: Nystatin Powder 15 GM BOT TOP SCH ×2 (09:24→15:56)
[2016-12-11] MEDS: Sodium Hypochlorite 0.25% Solution 480 ML BOT TOP SCH (09:24)
[2016-12-11] MEDS ORDERED: Vancomycin HCl 1 GM in Premix Bag 1 BAG IVPB SCH (11:30)
--- NOTE | 2016-12-11 11:37 | PDOC.PN ---
- Subjective Encounter Start Date: 12/11/16 Encounter Start Time: 11:36 Patient seen and examined. No new complaints. No overnight events - Objective MAR Reviewed: Yes Vital Signs & Weight: Vital Signs (12 hours) Temp Pulse Resp BP Pulse Ox 12/11/16 09:03 96.4 F L 73 24 H 136/92 H 100 12/11/16 08:00 97.5 F L 73 21 H 100 12/11/16 04:00 97.5 F L 73 21 H 123/57 L 64 L Weight Admit Weight 239 lb Weight 236 lb I&O: 12/10/16 12/11/16 12/12/16 06:59 06:59 06:59 Intake Total 1745 2316 240 Output Total 1450 2275 Balance 295 41 240 Result Diagrams: 12/09/16 04:33 12/08/16 13:09 Additional Labs: Accuchecks 12/11/16 12/10/16 12/10/16 07:03 21:04 16:22 POC Glucose 111 H 108 100 Phys Exam - Physical Examination Constitutional: NAD HEENT: PERRLA hard of hearing Neck: no JVD Respiratory: no rales Cardiovascular: no significant murmur Gastrointestinal: non-tender Musculoskeletal: pulses present Neurological: normal sensation Psychiatric: A&O x 3 Dx/Plan (1) Decubitus ulcer Code(s): L89.90 - PRESSURE ULCER OF UNSPECIFIED SITE, UNSPECIFIED STAGE Status : Acute (2) UTI (urinary tract infection) Status: Acute Comment: possible catheter associated pt has been having figueroa in for last few months possibly from june (3) CAD (coronary artery disease) Code(s): I25.10 - ATHSCL HEART DISEASE OF [place] CORONARY ARTERY W/O ANG PCTRS Status: Chronic Qualifiers: Coronary Disease-Associated Artery/Lesion type: bypass graft [place] vs. transplanted heart: [place] heart Associated angina: without angina Qualified Code(s): I25.810 - Atherosclerosis of coronary artery bypass graft(s) without angina pectoris (4) Dyslipidemia Code(s): E78.5 - HYPERLIPIDEMIA, UNSPECIFIED Status: Chronic (5) HTN (hypertension) Code(s): I10 - ESSENTIAL (PRIMARY) HYPERTENSION Status: Chronic Qualifiers: Hypertension type: essential hypertension Qualified Code(s): I10 - Essential (primary) hypertension (6) Pacemaker Code(s): Z95.0 - PRESENCE OF CARDIAC PACEMAKER Status: Chronic (7) Osteomyelitis hip Code(s): M86.9 - OSTEOMYELITIS, UNSPECIFIED Status: Acute (8) GI (gastrointestinal bleed) Code(s): K92.2 - GASTROINTESTINAL HEMORRHAGE, UNSPECIFIED Status: Acute Comment: gi input appreciated conservative rx for now etiology possible isch colitis - Plan * medically stable [place] [facility] [place]
[2016-12-11] MEDS ORDERED: Cefepime 1 GM in Sodium Chloride 0.9% 100 ML IVPB SCH (13:00)
[2016-12-11] MEDS ORDERED: VANCOMYCIN IVPB PRN (13:06)
--- NOTE | 2016-12-11 13:47 | DIS ---
DISCHARGE DIAGNOSES: 1. Decubitus ulcer with evidence of osteomyelitis. 2. Hypertension. 3. Dyslipidemia. 4. Gastrointestinal bleed, resolved, possibly secondary to ischemic colitis. 5. Catheter associated urinary tract infection, possible contamination. 6. Coronary artery disease status post pacemaker. DISPOSITION: [facility]. CONSULTANTS ON THE CASE: GI and Dr. Hernandez. STUDIES DURING THIS HOSPITAL STAY: White blood cell labeling, nuclear medicine study which showed a left hip osteomyelitis involving the ischial tuberosity, left acetabulum, left proximal femur. BRIEF HOSPITAL COURSE: This is an 89-year-old pleasant gentleman with a history of diabetes, chroni c decubitus ulcer, congestive heart failure, hypertension, atrial fibrillation who came into the [facility] with chronic hip wound. Please refer to the admitting physician's H\T\P for further details. Patient was admitted. Bone scan was done which showed osteomyelitis. He was empirically treated w ith IV antibiotics and wound care was in place. Dr. Hernandez was consulted for recommendations. He re commended vancomycin 1 gram q.12 h. to be given until 01/23/2017 and cefepime 1 gram q.8 h. to be gi johnathan until 01/23/2017. Arrangements for him to go to [facility] have been made. The patient was also seen by GI because he had episode of GI bleeding. They evaluated the patient and thought it was probably secondary to ischemic colitis. The patient right now is medically stable to be disc harged with transfer to [facility]. I spoke with Dr. Gonsalez and gave him a sign out as bryant phan. He will be followed up by him and Dr. Hernandez as an outpatient. He is asked to come back to the e mergency room in case symptoms recur. Total time for this discharge took 35 minutes.
[2016-12-11] MEDS ORDERED: Vancomycin HCl 1.25 GM in Sodium Chloride 0.9% 250 ML 250 ML IVPB SCH (15:00)
[2016-12-11 16:02] VITALS: BP 153/70; TEMP 97.6
[2016-12-11] MEDS ORDERED: Heparin 1,000 UNITS/ML VIAL ONE (16:12)
--- NOTE | 2016-12-12 12:15 | EKG ---
Test Reason : Blood Pressure : / mmHG Vent. Rate : 070 BPM Atrial Rate : 065 BPM P-R Int : 000 ms QRS Dur : 182 ms QT Int : 470 ms P-R-T Axes : 000 -88 080 degrees QTc Int : 507 ms Poor data quality, interpretation may be adversely affected Electronic ventricular pacemaker Confirmed by TASHA FROST ([id number]), offline editor TARA CHEUNG ([id number]) on 12/12/2016 12:15:19 PM Referred By: MD FROST Confirmed By:TASHA FROST
--- NOTE | 2016-12-12 12:17 | EKG ---
Test Reason : Blood Pressure : / mmHG Vent. Rate : 070 BPM Atrial Rate : 074 BPM P-R Int : 000 ms QRS Dur : 094 ms QT Int : 412 ms P-R-T Axes : 000 001 248 degrees QTc Int : 444 ms Demand pacemaker; interpretation is based on intrinsic rhythm Atrial fibrillation with premature ventricular or aberrantly conducted complexes Low voltage QRS Cannot rule out Anterior infarct , age undetermined Abnormal ECG No ST elevation/MS Confirmed by TASHA FROST ([id number]), managing editor TARA CHEUNG ([id number]) on 12/12/2016 12:16:41 PM Referred By: Confirmed By:TASHA FROST
== END 2016-12-11 16:38 | DRG 539 ==
LOC: ERS 15:07 → 2NO 18:39
PROVIDERS: ADMIT Internal Medicine; ATTEND Internal Medicine
PROC: 02HV33Z Insertion of Infusion Device into Superior Vena Cava, Percutaneous Approach (ICD-10-PCS; principal; 2016-12-10)
DX: M86.8X8 Other osteomyelitis, other site (principal); L89.214 Pressure ulcer of right hip, stage 4; K55.9 Vascular disorder of intestine, unspecified; I42.9 Cardiomyopathy, unspecified; I11.9 Hypertensive heart disease without heart failure; T83.511A Infection and inflammatory reaction due to indwelling urethral catheter, initial encounter; N30.00 Acute cystitis without hematuria; E11.9 Type 2 diabetes mellitus without complications; Z96.643 Presence of artificial hip joint, bilateral; Z95.0 Presence of cardiac pacemaker; E78.5 Hyperlipidemia, unspecified; Y84.6 Urinary catheterization as the cause of abnormal reaction of the patient, or of later complication, without mention of misadventure at the time of the procedure; I25.10 Atherosclerotic heart disease of native coronary artery without angina pectoris; Z95.5 Presence of coronary angioplasty implant and graft
CPT/HCPCS: 36415; 36416; 36569; 51702; 74177; 78806; 80048; 80053; 80202; 81003; 81015; 82274; 82550; 82553; 83605; 84484; 85025; 85610; 85730; 86140; 87040; 87077; 87086; 87186; 93005; 93010; 96365; A4216; A4641; A9521; C1751; G8978-GP-CM; G8979-GP-CL; J0692; J1644; J2543; J3370; J7050